=== PATIENT | female | born 1965 | race Native Hawaiian/Other Pacific Islander ===

== ENCOUNTER 2021-08-04 12:07 | Outpatient (CLI) | payer BC ==
[~2021-08-04 12:07] MED LIST: CIPRO500 MG PO; MUPI2OIN2 TOP
== END 2021-08-04 20:07 | disposition home or self-care (01) ==
LOC: CT 12:07
PROVIDERS: ATTEND Internal Medicine
DX: R31.9 Hematuria, unspecified (principal)